=== PATIENT | male | born 1965 | race Caucasian/White ===

== ENCOUNTER 2016-11-29 07:48 | Emergency (ER) | payer BC ==
[~2016-11-29] VITALS: Ht 177.8 cm; Wt 115.3 kg
[~2016-11-29 07:48] MED LIST: IBUP-103 PO; METO50TA7 PO
[2016-11-29 07:49] VITALS: TEMP 36.6; Ht 177.8 cm; Wt 115.3 kg
[2016-11-29] MEDS ORDERED: KETOROLAC TROMETHAMINE 60 MG/2 ML VIAL IM STA (08:19)
[2016-11-29 08:41] VITALS: BP 122/65; PULSE 68; O2SAT 98
--- NOTE | 2016-11-29 12:18 | EMERGENCY ROOM VISIT NOTE ---
History First contact with patient: 08:02 Chief Complaint: NECK PAIN Stated Complaint: NECK SPASMS History of Present Illness The patient is a 51 year old male who presents to the Emergency Room with complaints of neck stiffness and "a crick in my neck". The patient reports that he developed tightness in his neck last evening around 11 PM. He admits to playing golf yesterday, but denies any known injury to the neck. The patient reports that the pain progressively worsened overnight, worsened with any movement. The patient reports that he does frequently get neck tightness. The patient is predominantly a side sleeper. He does not feel that his pillow is good for side sleeping. The patient denies any pain extending into the upper back, shoulder or chest. He denies any shortness of breath or pain with deep breathing. The patient reports that he also has a prior history of lower back problems, and did take some Flexeril that he had at home. He does report moderate relief with the Flexeril, but still rates his discomfort a 5 out of 10. He denies any paresthesias or numbness of the upper extremities. Review of Systems 10 system review was performed and was negative except for pertinent positives and negatives as indicated in history of present illness Past Medical/Surgical History Medical Problems: (1) Obesity, unspecified (2) Obstructive Sleep Apnea (Adult) (Pediatric) (3) Obstructive Sleep Apnea (Adult) (Pediatric) (4) Parox Ventric Tachycard Surgical Problems: (1) History of inguinal hernia repair, bilateral (2) Presence Of Automatic (Implantable) Cardiac Defibrillator Family History FH: heart disease FH: melanoma Social History Smoking Status: Never Smoker Alcohol Use: occasionally Marital Status: Housing Status: lives with family Occupation Status: employed Current/Historical Medications Scheduled Metoprolol Succ (Toprol Xl) (Toprol-Xl), 50 MG PO QAM Scheduled PRN Ibuprofen Tab (Advil), 200 MG PO DIRECTED PRN for Pain Physical Exam Vital Signs Date Time Temp Pulse Resp B/P (MAP) Pulse Ox O2 Delivery O2 Flow Rate FiO2 11/29/16 08:41 68 16 122/65 98 11/29/16 07:49 36.6 73 16 127/83 95 Room Air Pain Rating (0-10): 6.0 Physical Exam CONSTITUTIONAL: Healthy and well nourished. Alert and oriented X 3 with positive affect. Patient appears in mild discomfort. HEENT: Normocephalic, atraumatic. Pupils equal, round and reactive. NECK: The patient minimizes movement of the neck. He has mild rigidity of the right cervical paraspinous and lateral musculature.. RESPIRATORY: Clear to auscultation bilaterally with no wheezing, crackles, rhonchi or stridor. CARDIOVASCULAR: Regular rate and rhythm with no murmurs, rubs or gallops. MUSCULOSKELETAL: Examination shows no significant tenderness to palpation of the right trapezius muscle or shoulder region. INTEGUMENTARY: No rash or other significant dermatologic conditions noted. NEUROLOGIC: No focal neurologic deficits noted. Deltoid sensation is intact. Medical Decision & Procedures Medications Administered Medications (Trade) Dose Ordered Sig/Bharat Route Start Time Stop Time Status Last Admin Dose Admin Ketorolac Tromethamine (Toradol Inj) 60 mg NOW STAT IM 11/29/16 08:19 11/29/16 08:20 DC 11/29/16 08:37 60 MG ED Course Patient history and physical exam were performed. Nurse's notes were reviewed. Vital signs were reviewed and were normal. History and clinical exam are consistent with cervical muscle spasm. The patient was dispensed a soft cervical collar, and encouraged to apply heat to the neck. The patient reports that he is allowed to take NSAIDs. He was encouraged to alternate ibuprofen and Tylenol for baseline pain relief. He was also instructed to continue with his Flexeril at home as needed for additional relief. He was encouraged to follow-up with his PCP as needed if his spasm persists. The patient was happy with plan of care, voiced understanding of all discharge instructions, and rated his discomfort a 4 out of 10 at the time of discharge. Medical Decision Medication Reconcilliation Current Medication List: was personally reviewed by mo Blood Pressure Screening Patient's blood pressure: Normal blood pressure Impression Primary Impression: Spasm of cervical paraspinous muscle Departure Information Dispostion Home / Self-Care Forms HOME CARE DOCUMENTATION FORM, IMPORTANT VISIT INFORMATION Patient Instructions My [facility], ED Spasm Neck No Injury Additional Instructions Intermittently apply heat to neck. Wear soft collar as needed for additional relief. Ibuprofen 800 mg and/or Tylenol 1000 mg every 8 hours. You may also alternate these medications for more effective pain relief: Ibuprofen --4 HRS--> Tylenol --4 HRS--> ibuprofen --4 HRS--> Tylenol .... Continue with Flexeril every 8 hours to minimize muscle irritability. Follow-up with your family doctor if symptoms are not improving within the next 2-3 days.
== END 2016-11-29 08:42 | disposition home or self-care (01) ==
LOC: C.EDB 07:49 → C.EDA 08:42
DX: M62.838 Other muscle spasm (principal); M54.2 Cervicalgia; G47.33 Obstructive sleep apnea (adult) (pediatric); E66.9 Obesity, unspecified; I47.2 Ventricular tachycardia; Z82.49 Family history of ischemic heart disease and other diseases of the circulatory system; Z80.9 Family history of malignant neoplasm, unspecified; Z79.899 Other long term (current) drug therapy

== ENCOUNTER 2022-04-22 15:52 | Inpatient (IN) ==
[2022-04-22] MEDS ORDERED: ADENOSINE IV SOLN 3 MG/ML 2 ML VIAL IV ONE (16:08)
--- NOTE | 2022-04-22 16:11 | Emergency Department Note ---
Impression & Plan SVT (supraventricular tachycardia), HOCM (hypertrophic obstructive cardiomyopathy) ED Provider Note NAME: HAYLIE ORELLANA AGE: 56 SEX: M : 1965 ARRIVES VIA: Walk-In INFORMANT: Patient ED PROVIDER(S): Rojelio Zhu DO CHIEF COMPLAINT: chest pain, shortness of breath and arm pain HPI: Patient is a 56-year-old male with past medical history of hypertrophic cardiomyopathy who presents the ER for chest pain associated with left arm pain and shortness of breath and feeling his heart race. He does have a history of SVT. He denies any belly pain, nausea, vomiting, or diarrhea. No dysuria, urgency, or frequency. No other exacerbating or remitting factors. Pain is in the middle of his chest and feels like a tightness. This does feel slightly similar to his previous bouts of SVT. He denies any history of A. fib, flutter, V. tach or V. fib. PAST MEDICAL HISTORY:See Below PAST SURGICAL HISTORY:See Below FAMILY HISTORY:See Below SOCIAL HISTORY:See Below HOME MEDICATIONS:See Below ALLERGIES:See Below VITALS:See Below PHYSICAL EXAMINATION: GENERAL: Sitting up in bed, alert, mild distress EYE EXAM: normal conjunctiva. PERRL and EOM's grossly intact. OROPHARYNX: no exudate, no erythema, lips, buccal mucosa, and tongue normal and mucous membranes are moist NECK: supple, no nuchal rigidity, no adenopathy, non-tender LUNGS: Clear to auscultation. Normal chest wall mechanics HEART: Tachycardic, S1 normal and S2 normal ABDOMEN: abdomen soft, non-tender, normo-active bowel sounds, no masses, no rebound or guarding. UPPER EXTREMITIES: upper extremities are grossly normal. LOWER EXTREMITIES: No pitting edema. NEURO EXAM: Normal sensorium, cranial nerves II-XII grossly intact, normal speech, no gross weakness of arms, no gross weakness of legs. MEDICAL DECISION MAKING: Patient is a 56-year-old male who presents the ER for chest pain shortness of breath and arm pain. Upon arrival he is found to be in SVT. IV was established blood was obtained. Labs show no significant leukocytosis or anemia. BMP along LFTs bilirubin was unremarkable. Lipase is normal. Troponin was elevated. TSH of 4.8. COVID influenza and RSV were negative. Troponin was only mildly elevated. Discussed with [facility] cardiology Dr. Gerard. He recommended admission and additional oral dose metoprolol. Patient was given aspirin updated at bedside discussed with the hospitalist for further evaluation and work-up. We were unable to interrogate his defibrillator as our interrogation device was not working. I did discuss with the charge nurse and multiple other people in regards to getting this fixed but was unsuccessful. Triage Nursing notes reviewed. Limited review of prior medical records performed Vital Signs: reviewed and remarkable for no significant abnormalities Differential diagnosis: Cardiac ischemia, aortic dissection, pulmonary embolism, pneumothorax, pneumonia, pericarditis, myocarditis, esophageal rupture, GERD, cholecystitis, pancreatitis, musculoskeletal, as well as other pathologies. ER treatment provided: See below Diagnostics interpreted by me include EKG and cardiac monitoring as listed below: -Cardiac Monitoring: An order was placed for continuous cardiac monitoring. The monitor shows a rate of 170 with SVT rhythm. -ECG: Supraventricular tachycardia rate of [address] depressions in the inferior and lateral leads QTC 521 EKG #2 Sinus rhythm rate of 92 Normal axis No PVCs QTC 472 -Laboratory studies:Interpreted by me as stated above in MDM and shown below. Imaging studies: Xrays: As interpreted by me: Portable AP upright 1 view of the chest shows no focal infiltrate CTs show: none Consultation(s): Discussed with Dr. Gerard recommended admission and further work-up and additional dose of metoprolol Procedures:none Critical Care: None Past Med/Surg History Medical History Depression HOCM (hypertrophic obstructive cardiomyopathy) NSVT (nonsustained ventricular tachycardia) Obstructive sleep apnea (adult) (pediatric) SHEREEN (obstructive sleep apnea) Presence of automatic (implantable) cardiac defibrillator SVT (supraventricular tachycardia) Surgical History History of hernia surgery S/P colonoscopy S/P ICD (internal cardiac defibrillator) procedure Status post third molar tooth extraction 1996 Family History Other Hypertrophic cardiomyopathy Social History Smoking Status: Never smoker Hx Alcohol Use: Yes Alcohol type: beer Alcohol type Comment: every other day Hx Substance Use: No Preferred Language: Bengali Feels Safe at Home: Yes Allergies Allergies Allergy/AdvReac Type Severity Reaction Status Date / Time erythromycin base Allergy Mild HIVES Unverified 05/08/18 10:19 Penicillins Allergy Mild HIVES Unverified 05/08/18 10:19 Home Meds Home Medications Medication Instructions Recorded Confirmed glucosamine sulfate 500 mg tablet 500 mg PO QAM 05/08/18 04/22/22 (Glucosamine) metoprolol succinate 25 mg 25 mg PO BID 05/08/18 04/22/22 tablet,extended release 24 hr ascorbic acid (vitamin C) 1,000 mg 1,000 cap PO DAILY 04/22/22 04/22/22 capsule,extended release sertraline 100 mg tablet 100 mg PO DAILY 04/22/22 04/22/22 Results & Data (ED) Vital Signs Vital Signs - 24 hr 04/22/22 15:53 04/22/22 16:03 04/22/22 16:03 Temperature 36.6 C Temperature Source Temporal Artery Scan Pulse Rate 173 H 169 H Pulse Rate from SpO2 Sensor 170 H Respiratory Rate 24 28 H Respiratory Effort / Characteristics Non-Labored Spontaneous Blood Pressure 110/75 120/89 Blood Pressure Mean 86 99 Blood Pressure Position Sitting Pulse Oximetry 95 97 Oxygen Delivery Method Room Air Sepsis Recent Fever Within 48 Hours No Sepsis New/Unexplained Change in Mental Status N/A Sepsis Action Taken by Nursing No Action Required 04/22/22 16:10 04/22/22 16:20 04/22/22 16:30 Temperature Temperature Source Pulse Rate 104 H 93 H Pulse Rate from SpO2 Sensor 104 H 93 H Respiratory Rate 15 12 Respiratory Effort / Characteristics Blood Pressure 113/75 Blood Pressure Mean 87 Blood Pressure Position Pulse Oximetry 95 93 Oxygen Delivery Method Sepsis Recent Fever Within 48 Hours Sepsis New/Unexplained Change in Mental Status Sepsis Action Taken by Nursing 04/22/22 16:30 04/22/22 16:40 04/22/22 16:50 Temperature Temperature Source Pulse Rate 99 H 98 H 99 H Pulse Rate from SpO2 Sensor 98 H 97 H 99 H Respiratory Rate 7 L 20 20 Respiratory Effort / Characteristics Blood Pressure Blood Pressure Mean Blood Pressure Position Pulse Oximetry 90 94 93 Oxygen Delivery Method Sepsis Recent Fever Within 48 Hours Sepsis New/Unexplained Change in Mental Status Sepsis Action Taken by Nursing 04/22/22 17:00 04/22/22 17:00 04/22/22 17:10 Temperature Temperature Source Pulse Rate 98 H 98 H Pulse Rate from SpO2 Sensor 98 H 98 H Respiratory Rate 16 11 L Respiratory Effort / Characteristics Blood Pressure 106/70 Blood Pressure Mean 82 Blood Pressure Position Pulse Oximetry 92 96 Oxygen Delivery Method Sepsis Recent Fever Within 48 Hours Sepsis New/Unexplained Change in Mental Status Sepsis Action Taken by Nursing 04/22/22 17:20 04/22/22 17:30 04/22/22 17:31 Temperature Temperature Source Pulse Rate 98 H 100 H 94 H Pulse Rate from SpO2 Sensor 98 H 100 H 96 H Respiratory Rate 17 24 19 Respiratory Effort / Characteristics Blood Pressure Blood Pressure Mean Blood Pressure Position Pulse Oximetry 93 91 93 Oxygen Delivery Method Sepsis Recent Fever Within 48 Hours Sepsis New/Unexplained Change in Mental Status Sepsis Action Taken by Nursing 04/22/22 17:31 04/22/22 17:40 04/22/22 17:50 Temperature Temperature Source Pulse Rate 89 90 Pulse Rate from SpO2 Sensor 89 90 Respiratory Rate 9 L 14 Respiratory Effort / Characteristics Blood Pressure 100/86 Blood Pressure Mean 90 Blood Pressure Position Pulse Oximetry 95 92 Oxygen Delivery Method Sepsis Recent Fever Within 48 Hours Sepsis New/Unexplained Change in Mental Status Sepsis Action Taken by Nursing 04/22/22 18:00 04/22/22 18:00 04/22/22 18:10 Temperature Temperature Source Pulse Rate 83 80 Pulse Rate from SpO2 Sensor 84 80 Respiratory Rate 12 12 Respiratory Effort / Characteristics Blood Pressure 106/72 Blood Pressure Mean 83 Blood Pressure Position Pulse Oximetry 92 91 Oxygen Delivery Method Sepsis Recent Fever Within 48 Hours Sepsis New/Unexplained Change in Mental Status Sepsis Action Taken by Nursing 04/22/22 18:20 04/22/22 18:22 04/22/22 18:22 Temperature Temperature Source Pulse Rate 79 83 Pulse Rate from SpO2 Sensor 80 82 Respiratory Rate 16 12 Respiratory Effort / Characteristics Blood Pressure 110/81 Blood Pressure Mean 90 Blood Pressure Position Pulse Oximetry 95 94 Oxygen Delivery Method Sepsis Recent Fever Within 48 Hours Sepsis New/Unexplained Change in Mental Status Sepsis Action Taken by Nursing Laboratory Data 04/22/22 16:04 04/22/22 16:04 Lab Results 04/22/22 04/22/22 04/22/22 Range/Units 16:04 16:04 17:22 WBC 7.92 (4.8-10.8) K/ul RBC 5.40 (4.70-6.10) M/uL Hgb 16.7 (14.0-18.0) g/dl Hct 45.9 (42.0-52.0) % MCV 85.0 (80.0-100.0) fL MCH 30.9 (25.0-34.0) pg MCHC 36.4 H (32.0-36.0) g/dL RDW Std Deviation 38.4 (36.4-46.3) fL RDW Coeff of Georgette 12.6 (11.5-14.5) % Plt Count 204 (130-400) K/uL MPV 10.2 (9.4-12.4) fL Immature Gran % (Auto) 0.4 % Neut % (Auto) 59.8 % Lymph % (Auto) 26.3 % [place] % (Auto) 9.2 % Eos % (Auto) 3.5 % Baso % (Auto) 0.8 % Neut # (Auto) 4.74 (1.40-6.50) K/uL Lymph # (Auto) 2.08 (1.2-3.4) K/uL [place] # (Auto) 0.73 H (0.11-0.59) K/uL Eos # (Auto) 0.28 (0-0.50) K/uL Baso # (Auto) 0.06 (0-0.2) K/uL Immature Gran # (Auto) 0.03 (0.01-0.20) K/uL Sodium 139 (136-145) mmol/L Potassium 3.7 (3.5-5.1) mmol/L Chloride 106 (98-107) mmol/L Carbon Dioxide 26 (21-32) mmol/L Anion Gap 7 (3-11) BUN 21 (6-23) mg/dl Creatinine 1.15 (0.6-1.4) mg/dl Est Cr Clr Drug Dosing Not Reportable Est GFR ( Amer) 82.0 ml/min Est GFR (Non-Af Amer) 70.7 ml/min BUN/Creatinine Ratio 18.3 (10-20) Glucose 116 H (70-99(Fasting)) mg/dl Calcium 10.1 (8.5-10.1) mg/dl Total Bilirubin 0.7 (0.2-1.0) mg/dl AST 24 (13-39) U/L ALT 19 (7-52) U/L Alkaline Phosphatase 91 (34-104) U/L Troponin I High Sens 25.8 H (0-20) pg/ml Total Protein 7.6 (6.0-8.3) gm/dl Albumin 4.7 (3.4-5.0) gm/dl Globulin 2.9 (2.5-4.0) gm/dl Albumin/Globulin Ratio 1.6 (0.9-2) Lipase 20 (11-82) U/L SARS-CoV-2 (PCR) (Negative) Influenza Type A (PCR) (Neg) Influenza Type B (PCR) (Neg) RSV (RT-PCR) (Neg) SARS-CoV-2, RNA, NAAT NEGATIVE (NEGATIVE) 04/22/22 Range/Units 18:41 WBC (4.8-10.8) K/ul RBC (4.70-6.10) M/uL Hgb (14.0-18.0) g/dl Hct (42.0-52.0) % MCV (80.0-100.0) fL MCH (25.0-34.0) pg MCHC (32.0-36.0) g/dL RDW Std Deviation (36.4-46.3) fL RDW Coeff of Georgette (11.5-14.5) % Plt Count (130-400) K/uL MPV (9.4-12.4) fL Immature Gran % (Auto) % Neut % (Auto) % Lymph % (Auto) % [place] % (Auto) % Eos % (Auto) % Baso % (Auto) % Neut # (Auto) (1.40-6.50) K/uL Lymph # (Auto) (1.2-3.4) K/uL [place] # (Auto) (0.11-0.59) K/uL Eos # (Auto) (0-0.50) K/uL Baso # (Auto) (0-0.2) K/uL Immature Gran # (Auto) (0.01-0.20) K/uL Sodium (136-145) mmol/L Potassium (3.5-5.1) mmol/L Chloride (98-107) mmol/L Carbon Dioxide (21-32) mmol/L Anion Gap (3-11) BUN (6-23) mg/dl Creatinine (0.6-1.4) mg/dl Est Cr Clr Drug Dosing Est GFR ( Amer) ml/min Est GFR (Non-Af Amer) ml/min BUN/Creatinine Ratio (10-20) Glucose (70-99(Fasting)) mg/dl Calcium (8.5-10.1) mg/dl Total Bilirubin (0.2-1.0) mg/dl AST (13-39) U/L ALT (7-52) U/L Alkaline Phosphatase (34-104) U/L Troponin I High Sens (0-20) pg/ml Total Protein (6.0-8.3) gm/dl Albumin (3.4-5.0) gm/dl Globulin (2.5-4.0) gm/dl Albumin/Globulin Ratio (0.9-2) Lipase (11-82) U/L SARS-CoV-2 (PCR) NEGATIVE (Negative) Influenza Type A (PCR) Negative (Neg) Influenza Type B (PCR) Negative (Neg) RSV (RT-PCR) Negative (Neg) SARS-CoV-2, RNA, NAAT (NEGATIVE) Administered Medications Discontinued Medications Adenosine (Adenosine Iv Soln 3 Mg/Ml 2 Ml Vial) Confirm Administered Dose 6 mg IV [email or web address] ONE Stop: 04/22/22 16:09 Last Admin: 04/22/22 19:09 Dose: Not Given Documented By: [id number] Metoprolol Tartrate (Metoprolol Tartrate 50 Mg Tab) 25 mg PO NOW STA Stop: 04/22/22 18:06 Last Admin: 04/22/22 18:24 Dose: 25 mg Documented By: AM Imaging Data Radiologist's Impression: Chest X-Ray 04/22/22 15:59 SINGLE VIEW CHEST CLINICAL HISTORY: Atypical chest pain FINDINGS: An AP, portable, upright chest radiograph is compared to chest x-ray and chest CT dated 10/18/2021. A single lead cardiac AICD is located in the left upper abdomen. The heart is enlarged. The pulmonary vasculature is noncongested. Chronic interstitial thickening is similar to previous. Dependent opacities likely represent atelectasis. No large pleural effusion or pneumothorax is seen. The skeletal structures appear osteopenic. The bony thorax is grossly intact. IMPRESSION: 1. Cardiomegaly and the ICD without radiographic evidence of congestive failure. 2. Dependent opacities likely represent atelectasis. Clinical correlation will be required. ACT 112: Negative or not required by law. Electronically signed by: Saeid Be M.D. 04/22/2022 4:30 PM Discharge Plan Visit Data Chief Complaint: Cardiac Assessment Stated Complaint: CHEST PAIN, SHORTNESS OF BREATH, PAIN LEFT ARM ED Provider: Rojelio Zhu Discharge Problem: SVT (supraventricular tachycardia), HOCM (hypertrophic obstructive cardiomyopathy) Patient Disposition: Admitted As Inpatient Discharge Instructions Interventions: ED Discharge Assessment Last Done: 04/22/22 21:42
[2022-04-22 16:15] LABS: Basophils # (auto) 0.06 K/uL (0-0.2); Basophils % (auto) 0.8 %; Eosinophils # (auto) 0.28 K/uL (0-0.50); Eosinophils % (auto) 3.5 %; Hematocrit (blood only) 45.9 % (42.0-52.0); Hemoglobin 16.7 g/dl (14.0-18.0); Immature Granulocytes # (auto) 0.03 K/uL (0.01-0.20); Immature Granulocytes % (auto) 0.4 %; Lymphocytes # (auto) 2.08 K/uL (1.2-3.4); Lymphocytes % (auto) 26.3 %; Mean Corpuscular Hemoglobin 30.9 pg (25.0-34.0); Mean Corpuscular Hgb Conc 36.4 g/dL (32.0-36.0); Mean Platelet Volume 10.2 fL (9.4-12.4); Monocytes # (auto) 0.73 K/uL (0.11-0.59); Monocytes % (auto) 9.2 %; Neutrophils # (auto) 4.74 K/uL (1.40-6.50); Neutrophils % (auto) 59.8 %; Platelet Count 204 K/uL (130-400); RDW Coefficient of Variation 12.6 % (11.5-14.5); RDW Standard Deviation 38.4 fL (36.4-46.3); White Blood Count 7.92 K/ul (4.8-10.8)
--- NOTE | 2022-04-22 16:31 | XRay Report ---
SINGLE VIEW CHEST CLINICAL HISTORY: Atypical chest pain FINDINGS: An AP, portable, upright chest radiograph is compared to chest x-ray and chest CT dated 10/18. A single lead cardiac AICD is located in the left upper abdomen. The heart is enlarged. The pu lmonary vasculature is noncongested. Chronic interstitial thickening is similar to previous. Dependen t opacities likely represent atelectasis. No large pleural effusion or pneumothorax is seen. The skel etal structures appear osteopenic. The bony thorax is grossly intact. IMPRESSION: 1. Cardiomegaly and the ICD without radiographic evidence of congestive failure. 2. Dependent opacities likely represent atelectasis. Clinical correlation will be required. ACT 112: Negative or not required by law. Electronically signed by: Saeid Be M.D. 04/22/2022 4:30 PM
[2022-04-22 16:46] LABS: Alanine Aminotransferase 19 U/L (7-52); Albumin Globulin Ratio 1.6 (0.9-2); Albumin Level 4.7 gm/dl (3.4-5.0); Alkaline Phosphatase 91 U/L (34-104); Anion Gap 7 (3-11); Aspartate Aminotransferase 24 U/L (13-39); BUN Creatinine Ratio 18.3 (10-20); Bilirubin,Total 0.7 mg/dl (0.2-1.0); Blood Urea Nitrogen 21 mg/dl (6-23); Calcium 10.1 mg/dl (8.5-10.1); Carbon Dioxide 26 mmol/L (21-32); Chloride 106 mmol/L (98-107); Est GFR (Non-African American) 70.7 ml/min; Globulin 2.9 gm/dl (2.5-4.0); Glucose 116 mg/dl (70-99(Fasting)); Lipase 20 U/L (11-82); Potassium 3.7 mmol/L (3.5-5.1); Sodium 139 mmol/L (136-145); Total Protein 7.6 gm/dl (6.0-8.3)
[2022-04-22 16:53] LABS: Troponin I High Sensitivity 25.8 pg/ml (0-20)
[2022-04-22] MEDS ORDERED: METOPROLOL TARTRATE 50 MG TAB PO STA (18:05)
--- NOTE | 2022-04-22 18:47 | History & Physical Report ---
Date of Service April 22, 2022 Assessment & Plan (1) SVT (supraventricular tachycardia): Plan: HOCM patient with ICD in place has a h/o SVT, last in Oct 2021. No ICD firing, but symptoms brought him to the ER. This was likely related to 1 bottle of wine he drank last night and missed doses of metoprolol yesterday. Denies caffeine use. Reports 1 beer every other day on average and no other street drug use. He reports using some common herbal supplements such as tumeric, glucosamine, and vitamin C. No other stimulant use is apparent. TSH in the fall was normal, will recheck now. Will check Mag and repeat troponin, which is likely elevated from rapid heart rate. EKG is nonischemic. Cardiology consulted to assess in am. Pacemaker interrogation was ordered. (2) HOCM (hypertrophic obstructive cardiomyopathy): Plan: known structural heart disease s/p ICD (3) SHEREEN (obstructive sleep apnea): Plan: compliant with CPAP qHS which was ordered. (4) Depression: Plan: chronic, stable. Continues on sertraline daily. (5) Presence of automatic (implantable) cardiac defibrillator: Plan: Interrogation was ordered. (6) Morbid obesity: Plan: Lifestyle changes recommended to decrease percent body fat and improve lean muscle mass. DVT proph-Lovenox Full Code Dispo- PCU for close monitoring overnight. Then home in am pending cardiology clearance/recommendations. [facility] History of Present Illness Chief Complaint: tachycardia Primary Care Provider: NO PCP 56 yo man with a history of hypertrophic obstructive cardiomyopathy, supraventricular tachycardia and nonsustained ventricular tachycardia status post ICD in the setting of obstructive sleep apnea and morbid obesity presents for left arm pain and palpitations. He reports watching television with his [id number] after yazidi today and started feeling poorly. He specifically felt his heart racing, left arm pain and shortness of breath. He tried to bear down but without success. He took an aspirin and came to the ER. He spontaneously converted to sinus rhythm and was given 25 metoprolol p.o. When he converted to sinus rhythm his arm pain and symptoms resolved. Over the past few days he has been feeling well he reports no caffeine intake. He did drink almost a bottle of wine last night which is unusual for him. He also missed both his morning and evening dose of metoprolol yesterday. He did take his metoprolol dose this morning. He denies any fevers chills, urinary symptoms, GI symptoms or other issues today. He is currently in sinus rhythm an d reporting no symptoms and feeling well. He is asking to eat food. Allergies Allergy/AdvReac Type Severity Reaction Status Date / Time erythromycin base Allergy Mild HIVES Unverified 05/08/18 10:19 Penicillins Allergy Mild HIVES Unverified 05/08/18 10:19 Home Medications Medication Instructions Recorded Confirmed Type glucosamine sulfate 500 mg tablet 500 mg PO QAM 05/08/18 04/22/22 History (Glucosamine) metoprolol succinate 25 mg 25 mg PO BID 05/08/18 04/22/22 History tablet,extended release 24 hr ascorbic acid (vitamin C) 1,000 mg 1,000 cap PO DAILY 04/22/22 04/22/22 History capsule,extended release sertraline 100 mg tablet 100 mg PO DAILY 04/22/22 04/22/22 History Past Med/Surg History Medical History Depression HOCM (hypertrophic obstructive cardiomyopathy) NSVT (nonsustained ventricular tachycardia) Obstructive sleep apnea (adult) (pediatric) SHEREEN (obstructive sleep apnea) Presence of automatic (implantable) cardiac defibrillator SVT (supraventricular tachycardia) Surgical History History of hernia surgery S/P colonoscopy S/P ICD (internal cardiac defibrillator) procedure Status post third molar tooth extraction 1996 Family History Other Hypertrophic cardiomyopathy Social History Smoking Status: Never smoker Hx Alcohol Use: Yes Alcohol type: beer Alcohol type Comment: every other day Hx Substance Use: No Preferred Language: Persian Feels Safe at Home: Yes Review of Systems Review of Systems: All systems reviewed and negative except as indicated above in HPI. Physical Exam Physical Exam: CONSTITUTIONAL: obese, vitals as above, generally well- appearing, NAD EYES: pupils are round and equal bilaterally, normal conjunctivae, no scleral icterus ENT: external ear and nose normal, oropharynx clear, oral mucosa moist NECK: trachea midline, no lymphadenopathy RESPIRATORY: clear to auscultation bilaterally, no crackles, rales or wheezes, normal respiratory effort CARDIOVASCULAR: regular rate and rhythm, 3/6 JB across precordium, no gallops or rubs, no JVD, no peripheral edema CHEST: +ICD GASTROINTESTINAL: soft, protuberant, nontender, ND, no guarding MUSCULOSKELETAL: strength 5/5 throughout, head is normocephalic and atraumatic, no gross focal deficits. SKIN: warm and dry NEUROLOGIC: CN 2-12 grossly intact, no sensory deficit, normal cognition, normal speech, no tremor. No gross focal deficits. PSYCHIATRIC: alert cooperative and oriented to person, place and time. Euthymic mood, makes good eye contact, language grossly intact, recent and remote memory grossly intact. Results & Data Results & Data ([facility]) Vital Signs (Past 12 Hours) Vital Signs Temp Pulse Resp BP Pulse Ox O2 Del Method 04/22/22 18:22 83 12 94 04/22/22 18:22 110/81 04/22/22 18:20 79 16 95 04/22/22 18:10 80 12 91 04/22/22 18:00 83 12 92 04/22/22 18:00 106/72 04/22/22 17:50 90 14 92 04/22/22 17:40 89 9 L 95 04/22/22 17:31 100/86 04/22/22 17:31 94 H 19 93 04/22/22 17:30 100 H 24 91 04/22/22 17:20 98 H 17 93 04/22/22 17:10 98 H 11 L 96 04/22/22 17:00 98 H 16 92 04/22/22 17:00 106/70 04/22/22 16:50 99 H 20 93 04/22/22 16:40 98 H 20 94 04/22/22 16:30 99 H 7 L 90 04/22/22 16:30 113/75 04/22/22 16:20 93 H 12 93 04/22/22 16:10 104 H 15 95 04/22/22 16:03 169 H 28 H 97 04/22/22 16:03 120/89 04/22/22 15:53 36.6 C 173 H 24 110/75 95 Room Air Laboratory Results Short CBC 04/22/22 Range/Units 16:04 WBC 7.92 (4.8-10.8) K/ul Hgb 16.7 (14.0-18.0) g/dl Hct 45.9 (42.0-52.0) % Plt Count 204 (130-400) K/uL BMP 04/22/22 16:04 Sodium 139 Potassium 3.7 Chloride 106 Carbon Dioxide 26 BUN 21 Creatinine 1.15 Glucose 116 H Calcium 10.1 Liver Function 04/22/22 Range/Units 16:04 Total Bilirubin 0.7 (0.2-1.0) mg/dl AST 24 (13-39) U/L ALT 19 (7-52) U/L Alkaline Phosphatase 91 (34-104) U/L Albumin 4.7 (3.4-5.0) gm/dl Diagnostic Findings Chest X-Ray 04/22/22 15:59 SINGLE VIEW CHEST CLINICAL HISTORY: Atypical chest pain FINDINGS: An AP, portable, upright chest radiograph is compared to chest x-ray and chest CT dated 10/18/2021. A single lead cardiac AICD is located in the left upper abdomen. The heart is enlarged. The pulmonary vasculature is noncongested. Chronic interstitial thickening is similar to previous. Dependent opacities likely represent atelectasis. No large pleural effusion or pneumothorax is seen. The skeletal structures appear osteopenic. The bony thorax is grossly intact. IMPRESSION: 1. Cardiomegaly and the ICD without radiographic evidence of congestive failure. 2. Dependent opacities likely represent atelectasis. Clinical correlation will be required. ACT 112: Negative or not required by law. Electronically signed by: Saeid Be M.D. 04/22/2022 4:30 PM Code Status & VTE Plan VTE Prophylaxis Plan VTE Prophylaxis will be ordered: Yes
[2022-04-22 19:38] LABS: Influenza A virus by PCR Negative (Neg); Influenza B virus by PCR Negative (Neg); RSV by PCR Negative (Neg); SARS CoV2 RNA(COVID-19) Ceph NEGATIVE (Negative)
[2022-04-22] MEDS ORDERED: METOPROLOL SUCC 25MG EXT REL TAB PO SCH (21:00)
[2022-04-22 21:15] LABS: Magnesium 2.2 mg/dl (1.7-2.4)
[2022-04-22 21:30] LABS: Troponin I High Sensitivity 2329.5 pg/ml (0-20)
[2022-04-22] MEDS ORDERED: POLYETHYLENE (MIRALAX) 17 GM PACK PO PRN (21:41)
[2022-04-22] MEDS ORDERED: ACETAMINOPHEN 325 MG TAB PO PRN (21:41)
[2022-04-22 22:41] LABS: Thyroid Stimulating Hormone 4.893 uIu/ml (0.300-4.500)
[2022-04-22 23:20] LABS: T4 Free Thyroxine 0.83 ng/dl (0.61-1.60)
[2022-04-23] MEDS ORDERED: Heparin IV Adult Wt-Based Standard WITH Bolus Protocol IV SCH (00:04)
[2022-04-23] MEDS ORDERED: HEPARIN SODIUM/DEXTROSE 25,000 UNITS/500 ML BAG IV SCH (00:15)
[2022-04-23] MEDS ORDERED: HEPARIN SOD (PORCINE) 1000 UNIT/ML IV ONE (01:00)
[2022-04-23 01:09] LABS: Partial Thromboplastin Time 28.4 Seconds (21.0-31.0); Prothrombin Time 10.9 Seconds (9.0-12.0)
[2022-04-23 04:57] LABS: Hematocrit (blood only) 42.1 % (42.0-52.0); Hemoglobin 15.1 g/dl (14.0-18.0); Mean Corpuscular Hgb Conc 35.9 g/dL (32.0-36.0); Mean Corpuscular Volume 86.4 fL (80.0-100.0); Mean Platelet Volume 10.8 fL (9.4-12.4); Platelet Count 154 K/uL (130-400); RDW Standard Deviation 40.3 fL (36.4-46.3); Red Blood Count 4.87 M/uL (4.70-6.10); White Blood Count 8.03 K/ul (4.8-10.8)
[2022-04-23 05:26] LABS: BUN Creatinine Ratio 19.4 (10-20); Calcium 9.1 mg/dl (8.5-10.1); Creatinine Clr Calc Pharmacy 118.3 ml/min; Est GFR (Non-African American) 91.4 ml/min; Magnesium 2.2 mg/dl (1.7-2.4); Phosphorus 3.6 mg/dl (2.5-4.9)
[2022-04-23 05:52] LABS: Troponin I High Sensitivity 4243.2 pg/ml (0-20)
--- NOTE | 2022-04-23 07:22 | Communication Note ---
Date of Service: April 23, 2022 Patient second troponin tended up to 2000. asymptomatic. repeat ekg no acute findings. Started on iv heparin for nstemi, made npo. Troponin trended up to 5000 and am labs coming down to 4000's. Cardiology was already consulted. echo ordered.
[2022-04-23 08:56] LABS: Partial Thromboplastin Ratio 4.3
[2022-04-23 08:57] LABS: Partial Thromboplastin Time 118.2 Seconds (21.0-31.0)
[2022-04-23] MEDS ORDERED: SERTRALINE HCL 100 MG TABLET PO SCH (09:00)
[2022-04-23] MEDS ORDERED: METOPROLOL SUCC 25MG EXT REL TAB PO SCH (09:00)
--- NOTE | 2022-04-23 09:22 | Cardiology Consultation ---
Date of Consultation April 23, 2022 Assessment & Plan (1) HOCM (hypertrophic obstructive cardiomyopathy): (2) SVT (supraventricular tachycardia): (3) Presence of automatic (implantable) cardiac defibrillator: (4) Elevated troponin: Plan Patient is a 56-year-old male with known hypertrophic cardiomyopathy, obstructive, past atrial and ventricular arrhythmias who presented with narrow complex atrial tachycardia per report (no defibrillator activation) which spontaneously resolved in the ER. Episode may have been precipitated by a lapse in medications and alcohol use. Peak troponins however yoav substantially but without wall motion abnormality or EKG findings of acute injury Recommendations: Would proceed with coronary angiography to redefine coronary anatomy given significant rise in troponin. Echocardiogram does reflect severe hypertrophic cardiomyopathy Will interrogate pacer defibrillator to assure SVT versus atrial fibrillation which would change indications for long-term anticoagulation Heart rates better controlled and no arrhythmias on resuming usual dose of metoprolol succinate we will continue History of Present Illness Reason for Consultation: PSVT, elevated troponin Requesting Physician: Dr Simmons Attending Physician: Kam Simmons MD History of Present Illness Patient is a 56-year-old male with ongoing issues 1. Hypertrophic obstructive cardiomyopathy, gene positive familial 2. Paroxysmal supraventricular tachycardia 3. Paroxysmal ventricular tachycardia 4. Indwelling pacer defibrillator 5. Obstructive sleep apnea 6. Obesity Patient presents this admission noting day prior to admission having missed 2 doses of his medications, drank a full bottle of wine as an unusual occurrence. Patient was sitting quietly watching TV and suddenly developed sudden onset of tachycardia heart pounding with chest pain radiating to his left arm. Symptoms lasted 45 minutes to an hour before spontaneously resolving in the emergency room. Rhythm strips not available for review. No further discomfort since admission. No defibrillator activation. Device unable to be interrogated in the emergency room He does admit to occasional tachypalpitations but no sustained event since October 2021. Patient presented at that time and supraventricular tachycardia at 170 bpm per report resolved with adenosine Rare lightheadedness and 1 episode of exertional syncope No fevers chills or unexplained infections. No bleeding difficulties. Appetite and weight are stable. Allergies Allergy/AdvReac Type Severity Reaction Status Date / Time erythromycin base Allergy Mild HIVES Unverified 05/08/18 10:19 Penicillins Allergy Mild HIVES Unverified 05/08/18 10:19 Home Medications Medication Instructions Recorded Confirmed Type glucosamine sulfate 500 mg tablet 500 mg PO QAM 05/08/18 04/22/22 History (Glucosamine) metoprolol succinate 25 mg 25 mg PO BID 05/08/18 04/22/22 History tablet,extended release 24 hr ascorbic acid (vitamin C) 1,000 mg 1,000 cap PO DAILY 04/22/22 04/22/22 History capsule,extended release sertraline 100 mg tablet 100 mg PO DAILY 04/22/22 04/22/22 History Patient History Medical History Depression HOCM (hypertrophic obstructive cardiomyopathy) NSVT (nonsustained ventricular tachycardia) Obstructive sleep apnea (adult) (pediatric) SHEREEN (obstructive sleep apnea) Presence of automatic (implantable) cardiac defibrillator SVT (supraventricular tachycardia) Surgical History History of hernia surgery S/P colonoscopy S/P ICD (internal cardiac defibrillator) procedure Status post third molar tooth extraction 1996 Family History Other Hypertrophic cardiomyopathy Social History Smoking Status: Never smoker Second Hand Exposure: No; Do You Dip or Chew Tobacco: No; Tobacco Cessation Education Requested by Patient: No Hx Alcohol Use: Yes Alcohol type: wine Alcohol type Comment: every other day Hx Substance Use: No Preferred Language: Estonian Communication Ability: Effective [employer] Required: No Beliefs That Will Affect Care: None Current Living Situation: Spouse Other Information That Helps Us Care for You: No Feels Safe at Home: Yes Safety Concerns: Feels Safe At This Time Assistive Devices: None Review of Systems Review of Systems: All systems reviewed & are unremarkable except as noted in HPI & below Physical Exam Constitutional: WD/WN, vitals as above + obese; no acute distress Eyes: PERRL, conjunctivae normal, anicteric sclerae ENMT: external ear and nose normal, oropharynx normal Neck: trachea midline, no thyromegaly + thick neck Respiratory: normal respiratory effort, lungs clear to auscultation Cardiovascular: Rate/Rhythm: regular rate and regular rhythm Heart Sounds: normal S1, normal S2 and + murmur (Grade 2 or 6 systolic murmur heard best at the left upper sternal border. ); no gallop Palpation: normal PMI Vessels: normal carotid upstroke and radial pulses present; no JVD and no carotid bruit Extremities: no edema Gastrointestinal (Abdomen): normal bowel sounds, soft, nontender, no hepatosplenomegaly Musculoskeletal: no cyanosis or clubbing, extremities motor strength 5/5 Skin: no rashes, warm and dry Neurologic: PERRL, EOMI, accommodation nl, no face palsy, no dysarthria Psychiatric: A+Ox3, euthymic affect Results & Data ([facility]) Vital Signs (Past 12 Hours) Vital Signs Temp Pulse Resp BP Pulse Ox O2 Del Method 04/23/22 08:00 36.7 C 60 16 119/71 95 Room Air 04/23/22 04:00 36.7 C 56 L 18 119/60 94 Room Air, CPAP 04/23/22 02:50 36.9 C 60 18 135/70 95 Room Air 04/23/22 01:47 57 L 14 106/75 94 Room Air 04/23/22 01:02 69 14 106/75 96 Room Air 04/22/22 23:11 67 15 126/73 100 Room Air 04/22/22 22:16 61 14 111/81 96 Room Air 04/22/22 21:33 64 14 123/76 95 Room Air Laboratory Results Laboratory Results - last 24 hr 04/22/22 04/22/22 04/22/22 16:04 16:04 16:04 WBC 7.92 RBC 5.40 Hgb 16.7 Hct 45.9 MCV 85.0 MCH 30.9 MCHC 36.4 H RDW Std Deviation 38.4 RDW Coeff of Georgette 12.6 Plt Count 204 MPV 10.2 Immature Gran % (Auto) 0.4 Neut % (Auto) 59.8 Lymph % (Auto) 26.3 [place] % (Auto) 9.2 Eos % (Auto) 3.5 Baso % (Auto) 0.8 Neut # (Auto) 4.74 Lymph # (Auto) 2.08 [place] # (Auto) 0.73 H Eos # (Auto) 0.28 Baso # (Auto) 0.06 Immature Gran # (Auto) 0.03 PT 10.9 INR 1.0 APTT 28.4 PTT Ratio 1.0 Sodium 139 Potassium 3.7 Chloride 106 Carbon Dioxide 26 Anion Gap 7 BUN 21 Creatinine 1.15 Est Cr Clr Drug Dosing Not Reportable Est GFR ( Amer) 82.0 Est GFR (Non-Af Amer) 70.7 BUN/Creatinine Ratio 18.3 Glucose 116 H Calcium 10.1 Phosphorus Magnesium Total Bilirubin 0.7 AST 24 ALT 19 Alkaline Phosphatase 91 Troponin I High Sens 25.8 H Total Protein 7.6 Albumin 4.7 Globulin 2.9 Albumin/Globulin Ratio 1.6 Lipase 20 TSH Free T4 Nasal Screen MRSA (PCR) SARS-CoV-2 (PCR) Influenza Type A (PCR) Influenza Type B (PCR) RSV (RT-PCR) SARS-CoV-2, RNA, NAAT 04/22/22 04/22/22 04/22/22 17:22 18:41 19:26 WBC RBC Hgb Hct MCV MCH MCHC RDW Std Deviation RDW Coeff of Georgette Plt Count MPV Immature Gran % (Auto) Neut % (Auto) Lymph % (Auto) [place] % (Auto) Eos % (Auto) Baso % (Auto) Neut # (Auto) Lymph # (Auto) [place] # (Auto) Eos # (Auto) Baso # (Auto) Immature Gran # (Auto) PT INR APTT PTT Ratio Sodium Potassium Chloride Carbon Dioxide Anion Gap BUN Creatinine Est Cr Clr Drug Dosing Est GFR ( Amer) Est GFR (Non-Af Amer) BUN/Creatinine Ratio Glucose Calcium Phosphorus Magnesium Total Bilirubin AST ALT Alkaline Phosphatase Troponin I High Sens Total Protein Albumin Globulin Albumin/Globulin Ratio Lipase TSH 4.893 H Free T4 0.83 Nasal Screen MRSA (PCR) SARS-CoV-2 (PCR) NEGATIVE Influenza Type A (PCR) Negative Influenza Type B (PCR) Negative RSV (RT-PCR) Negative SARS-CoV-2, RNA, NAAT NEGATIVE 04/22/22 04/23/22 04/23/22 20:27 00:50 02:30 WBC RBC Hgb Hct MCV MCH MCHC RDW Std Deviation RDW Coeff of Georgette Plt Count MPV Immature Gran % (Auto) Neut % (Auto) Lymph % (Auto) [place] % (Auto) Eos % (Auto) Baso % (Auto) Neut # (Auto) Lymph # (Auto) [place] # (Auto) Eos # (Auto) Baso # (Auto) Immature Gran # (Auto) PT INR APTT PTT Ratio Sodium Potassium Chloride Carbon Dioxide Anion Gap BUN Creatinine Est Cr Clr Drug Dosing Est GFR ( Amer) Est GFR (Non-Af Amer) BUN/Creatinine Ratio Glucose Calcium Phosphorus Magnesium 2.2 Total Bilirubin AST ALT Alkaline Phosphatase Troponin I High Sens 2329.5 H* D 5120.5 H* D Total Protein Albumin Globulin Albumin/Globulin Ratio Lipase TSH Free T4 Nasal Screen MRSA (PCR) Negative SARS-CoV-2 (PCR) Influenza Type A (PCR) Influenza Type B (PCR) RSV (RT-PCR) SARS-CoV-2, RNA, NAAT 04/23/22 04/23/22 04/23/22 04:25 04:25 08:07 WBC 8.03 RBC 4.87 Hgb 15.1 Hct 42.1 MCV 86.4 MCH 31.0 MCHC 35.9 RDW Std Deviation 40.3 RDW Coeff of Georgette 13.0 Plt Count 154 MPV 10.8 Immature Gran % (Auto) Neut % (Auto) Lymph % (Auto) [place] % (Auto) Eos % (Auto) Baso % (Auto) Neut # (Auto) Lymph # (Auto) [place] # (Auto) Eos # (Auto) Baso # (Auto) Immature Gran # (Auto) PT INR APTT 118.2 H* PTT Ratio 4.3 Sodium 138 Potassium 4.0 Chloride 106 Carbon Dioxide 28 Anion Gap 4 BUN 18 Creatinine 0.93 Est Cr Clr Drug Dosing 118.3 Est GFR ( Amer) 106.0 Est GFR (Non-Af Amer) 91.4 BUN/Creatinine Ratio 19.4 Glucose 98 Calcium 9.1 Phosphorus 3.6 Magnesium 2.2 Total Bilirubin AST ALT Alkaline Phosphatase Troponin I High Sens 4243.2 H* Total Protein Albumin Globulin Albumin/Globulin Ratio Lipase TSH Free T4 Nasal Screen MRSA (PCR) SARS-CoV-2 (PCR) Influenza Type A (PCR) Influenza Type B (PCR) RSV (RT-PCR) SARS-CoV-2, RNA, NAAT Diagnostic Findings Echocardiogram 04/23/2022 The left ventricle is normal in size. There is severe asymmetric left ventricular hypertrophy. The interventricular septum and lateral wall measure greater than 2 cm in diast ole The left ventricular outflow tract is narrowed with mild obstruction, chordal systolic anterior motion of the mitral valve. Peak outflow tract velocity was 2.2 m/s at rest increasing to 3 m/s with Valsalva The left ventricular wall motion is normal. Ejection Fraction = 55-60%. Grade I diastolic dysfunction, (abnormal relaxation pattern).
[2022-04-23] MEDS ORDERED: niCARdipine HCL INJ 2.5 MG/ML 10 ML AMP ONE (09:24)
[2022-04-23] MEDS ORDERED: HEPARIN (PORCINE) 1000 UNIT/ML 10 ML (CATH LAB USE ONLY) ONE (09:24)
[2022-04-23] MEDS ORDERED: fentaNYL citrate 100 MCG/2 ML VIAL ONE (09:24)
[2022-04-23] MEDS ORDERED: MIDAZOLAM HCL 1 MG/ML 2ML VIAL ONE (09:24)
[2022-04-23] MEDS ORDERED: NITROGLYCERIN/D5W 100MCG/ML 20ML SYR ONE (09:24)
--- NOTE | 2022-04-23 09:38 | Electrocardiogram Report ---
Test Reason : Blood Pressure : / mmHG Vent. Rate : 170 BPM Atrial Rate : 170 BPM P-R Int : 000 ms QRS Dur : 134 ms QT Int : 310 ms P-R-T Axes : 000 -08 022 degrees QTc Int : [address] depression in Anterior leads , consider ischemia Abnormal ECG When compared with ECG of 18-OCT-2021 10:16, Vent. rate has increased BY 96 BPM Confirmed by Shawn Page ([id number]) on 04/23/2022 9:38:03 AM Referred By: REFERRED SELF Confirmed By:Shawn Page
--- NOTE | 2022-04-23 09:40 | Electrocardiogram Report ---
Test Reason : Blood Pressure : / mmHG Vent. Rate : 092 BPM Atrial Rate : 092 BPM P-R Int : 172 ms QRS Dur : 092 ms QT Int : 382 ms P-R-T Axes : 032 -09 029 degrees QTc Int : 472 ms Normal sinus rhythm Left atrial enlargement Possible Old Lateral infarct Abnormal ECG When compared with ECG of 22-APR-2022 15:59, Supraventricular tachycardia no longer present Vent. rate has decreased BY [address] depression in Anterior leads no longer present Criteria for Old Lateral infarct now present (also seen on older ECGs) Confirmed by Shawn Page ([id number]) on 04/23/2022 9:39:53 AM Referred By: REFERRED SELF Confirmed By:Shawn Page
--- NOTE | 2022-04-23 09:57 | Pre Anesthesia Assessment ---
Date of Service April 23, 2022 Pre Sedation Assessment Vital Signs Temp Pulse Pulse Resp BP BP Pulse Ox 04/23/22 09:41 59 L 17 131/82 97 04/23/22 08:00 36.7 C 60 16 119/71 95 04/23/22 04:00 36.7 C 56 L 18 119/60 94 04/23/22 02:50 36.9 C 60 18 135/70 95 04/23/22 01:47 57 L 14 106/75 94 04/23/22 01:02 69 14 106/75 96 04/22/22 23:11 67 15 126/73 100 04/22/22 22:16 61 14 111/81 96 04/22/22 21:33 64 14 123/76 95 04/22/22 20:17 64 14 121/82 96 04/22/22 19:23 63 14 137/80 98 04/22/22 18:22 83 12 94 04/22/22 18:22 110/81 04/22/22 18:20 79 16 95 04/22/22 18:10 80 12 91 04/22/22 18:00 83 12 92 04/22/22 18:00 106/72 04/22/22 17:50 90 14 92 04/22/22 17:40 89 9 L 95 04/22/22 17:31 100/86 04/22/22 17:31 94 H 19 93 04/22/22 17:30 100 H 24 91 04/22/22 17:20 98 H 17 93 04/22/22 17:10 98 H 11 L 96 04/22/22 17:00 98 H 16 92 04/22/22 17:00 106/70 04/22/22 16:50 99 H 20 93 04/22/22 16:40 98 H 20 94 04/22/22 16:30 99 H 7 L 90 04/22/22 16:30 113/75 04/22/22 16:20 93 H 12 93 04/22/22 16:10 104 H 15 95 04/22/22 16:03 169 H 28 H 97 04/22/22 16:03 120/89 04/22/22 15:53 36.6 C 173 H 24 110/75 95 O2 Del Method 04/23/22 09:41 Room Air 04/23/22 08:00 Room Air 04/23/22 04:00 Room Air, CPAP 04/23/22 02:50 Room Air 04/23/22 01:47 Room Air 04/23/22 01:02 Room Air 04/22/22 23:11 Room Air 04/22/22 22:16 Room Air 04/22/22 21:33 Room Air 04/22/22 20:17 Room Air 04/22/22 19:23 Room Air 04/22/22 18:22 04/22/22 18:22 04/22/22 18:20 04/22/22 18:10 04/22/22 18:00 04/22/22 18:00 04/22/22 17:50 04/22/22 17:40 04/22/22 17:31 04/22/22 17:31 04/22/22 17:30 04/22/22 17:20 04/22/22 17:10 04/22/22 17:00 04/22/22 17:00 04/22/22 16:50 04/22/22 16:40 04/22/22 16:30 04/22/22 16:30 04/22/22 16:20 04/22/22 16:10 04/22/22 16:03 04/22/22 16:03 04/22/22 15:53 Room Air Cardiovascular + regular rate + S1 normal and + S2 normal + femoral pulses present and + radial pulses present; no JVD and no carotid bruit no edema Respiratory + respiratory effort normal; no respiratory distress and no labored breathing no crackles, no rales, no rhonchi and no wheezes Pre-Sedation Airway Assessment Smoking Status: Never smoker Hx Sleep Apnea: Yes Short, Thick Neck: No Thyromental Distance: > or= 3.5 Finger Breadths Oral Cavity: + WNL Mallampati Class: II ASA: ASA2 NPO Status Date of Last Intake of Fluids: 04/22/22 Time of Last Intake of Fluids: 20:00 Date of Last Intake of Solid Food: 04/22/22 Time of Last Intake of Solid Foods: 20:00 Procedure Planning Contraindications for Sedation: none Current Medications Reviewed: Yes Notes The planned sedation has been discussed with the patient. Informed Consent was obtained. I have identified the patient, determined the appropriateness of sedation and have assessed the patient immediately prior to the procedure. All medicine(s) and interventions are by my order.
--- NOTE | 2022-04-23 10:16 | Electrocardiogram Report ---
Test Reason : Blood Pressure : / mmHG Vent. Rate : 058 BPM Atrial Rate : 058 BPM P-R Int : 174 ms QRS Dur : 090 ms QT Int : 454 ms P-R-T Axes : 019 -57 039 degrees QTc Int : 445 ms Sinus bradycardia Left atrial enlargement Left anterior fascicular block Possible Old Lateral infarct Abnormal ECG When compared with ECG of 22-APR-2022 16:11, Vent. rate has decreased BY 34 BPM Confirmed by Shawn Page ([id number]) on 04/23/2022 10:16:15 AM Referred By: REFERRED SELF Confirmed By:Shawn Page
--- NOTE | 2022-04-23 11:08 | Post Anesthesia Assessment ---
Date of Service April 23, 2022 Post Sedation Assessment Vital Signs Temp Pulse Pulse Resp BP BP Pulse Ox 04/23/22 09:41 59 L 17 131/82 97 04/23/22 08:00 36.7 C 60 16 119/71 95 04/23/22 04:00 36.7 C 56 L 18 119/60 94 04/23/22 02:50 36.9 C 60 18 135/70 95 04/23/22 01:47 57 L 14 106/75 94 04/23/22 01:02 69 14 106/75 96 04/22/22 23:11 67 15 126/73 100 04/22/22 22:16 61 14 111/81 96 04/22/22 21:33 64 14 123/76 95 04/22/22 20:17 64 14 121/82 96 04/22/22 19:23 63 14 137/80 98 04/22/22 18:22 83 12 94 04/22/22 18:22 110/81 04/22/22 18:20 79 16 95 04/22/22 18:10 80 12 91 04/22/22 18:00 83 12 92 04/22/22 18:00 106/72 04/22/22 17:50 90 14 92 04/22/22 17:40 89 9 L 95 04/22/22 17:31 100/86 04/22/22 17:31 94 H 19 93 04/22/22 17:30 100 H 24 91 04/22/22 17:20 98 H 17 93 04/22/22 17:10 98 H 11 L 96 04/22/22 17:00 98 H 16 92 04/22/22 17:00 106/70 04/22/22 16:50 99 H 20 93 04/22/22 16:40 98 H 20 94 04/22/22 16:30 99 H 7 L 90 04/22/22 16:30 113/75 04/22/22 16:20 93 H 12 93 04/22/22 16:10 104 H 15 95 04/22/22 16:03 169 H 28 H 97 04/22/22 16:03 120/89 04/22/22 15:53 36.6 C 173 H 24 110/75 95 O2 Del Method 04/23/22 09:41 Room Air 04/23/22 08:00 Room Air 04/23/22 04:00 Room Air, CPAP 04/23/22 02:50 Room Air 04/23/22 01:47 Room Air 04/23/22 01:02 Room Air 04/22/22 23:11 Room Air 04/22/22 22:16 Room Air 04/22/22 21:33 Room Air 04/22/22 20:17 Room Air 04/22/22 19:23 Room Air 04/22/22 18:22 04/22/22 18:22 04/22/22 18:20 04/22/22 18:10 04/22/22 18:00 04/22/22 18:00 04/22/22 17:50 04/22/22 17:40 04/22/22 17:31 04/22/22 17:31 04/22/22 17:30 04/22/22 17:20 04/22/22 17:10 04/22/22 17:00 04/22/22 17:00 04/22/22 16:50 04/22/22 16:40 04/22/22 16:30 04/22/22 16:30 04/22/22 16:20 04/22/22 16:10 04/22/22 16:03 04/22/22 16:03 04/22/22 15:53 Room Air Recovery Score Activity: Moves 4 extremities Respiration: Deep Breath/Cough Circulation: +/-20% PreAnes Value Consciousness: Arouseable (by name) Oxygen Saturation: > 92% On Room Air Discharge Sedation Level of Care: Phase I Post Sedation Plan On clinical assessment, the patient appears to have tolerated the sedation without complications. Patient is recovering as anticipated. Patient will continue to be monitored by nursing and may be discharged when sedation discharge criteria are met per below protocol. Upon Completions of procedure up to 15 minutes continue every 5 minute vital signs and the P.A.R. score; then discharge to a Phase I or Fast Track to Phase II per the following guidelines: * Discharge Patient to appropriate Phase II area if PAR is 8 or greater or return to pre- procedure baseline. The post - procedure orders will be as directed. * If PAR score is less than 8 or not return to pre-procedure baseline then patient will follow Phase I monitoring till PAR is reached for Phase II. The Phase I may be done in procedure room or may call to secure a Phase I area. * If naloxone or flumazenil are used for reversal, hold in Phase I for continued monitoring from when last reversal dose was given for a minimum of 60 minutes or longer pending the nurse and/or physician discretion of patient condition before discharge to Phase II. Please call the Sedation Physician to re-evaluate and complete post-note for discharge to Phase II area. Do NOT discharge from procedure sedation or Phase 1 until post- sedation evaluation note is complete by procedure /sedation MD Sedation Discharge Instructions to be given to the patient at discharge to home.
--- NOTE | 2022-04-23 11:12 | Cardiac Catheterization ---
Cardiac Cath Procedure Full Procedure Date April 23, 2022 Pre-Procedure Diagnosis Pre-Procedure Diagnosis: Acute Coronary Syndrome, Cardiomyopathy (Hypertrophic cardiomyopathy) and Arrhythmia (Paroxysmal supraventricular tachycardia) AUC Score AUC Score: 7 Post-Procedure Diagnosis Post-Procedure Diagnosis: Mild CAD, Elevated Intracardiac Pressures and Cardiothoracic Finding (No significant peak to peak gradient to suggest LVOT obstruction) Procedure(s) Performed Procedure(s) Performed: Coronary Angiography and Left Heart Cath School Resource Officer Andrea Gerard DO Food And Beverage Service Manager(s) Obdulia RTR Estimated Blood Loss Estimated Blood Loss: 5cc Medication(s) Medication(s): Fentanyl, Heparin, Lidocaine 1%, Nicardipine and Versed Summary of Findings Mild luminal irregularities (10%) of the proximal and mid LAD. Otherwise normal coronary anatomy. The left main is a short vessel with the multipurpose Tigr preferentially engaging the circumflex. Intermittent engagement of the left anterior descending artery. Hemodynamics Rest Ao:: 105/67/94 Final Ao: 110/69/88 LV: 108//23 Recommendations Recommendations: Medical Therapy and/or Counseling Specimens Specimens: None Radiation Exposure (mGy) 1430 Contrast (mls) 70 Fluids (cc crystalloids) Fluids (cc crystalloids): 70 Nss Drains Drains: N/A Anesthesia Moderate sedation. Start 1040. End 1058. Sedation monitor: Kayla ANAND Procedural Complication(s) None I attest to the content of the Intraoperative Record and any orders documented therein. Any exceptions are noted below. 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 Significantly elevated troponin with nondiagnostic ECG changes due to underlying hypertrophic cardiomyopathy. CAD Presenation: Non STEMI Heart Failure: No Cardiogenic Shock within 24 Hours: No Cardiac Arrest within 24 Hours: No Imaging Studies Past 6 Months: No Stress Studies Past 6 Months: No STEMI OR Non-STEMI Symptom Onset Date: 04/22/22 Thrombolytics: No Coronary Anatomy Dominant: Co-Dominant Left Main (% Stenosis): Normal (Short vessel) LAD (% Stenosis): Proximal (Mild diffuse luminal irregularities, 10%) and Mid (Mild diffuse luminal irregularities, 10%) D1 (% Stenosis): Normal D2 (% Stenosis): Normal D3 (% Stenosis): Normal Circumflex (% Stenosis): Normal OM1 (% Stenosis): Normal (Large vessel bifurcates in mid segment.) L PL1 (% Stenosis): Normal L PDA (% Stenosis): Normal RCA (% Stenosis): Normal R PDA (% Stenosis): Normal Diagnostic Physicians Name: Andrea Gerard DO Closure Device Percutaneous Entry Location: Radial Closure Device: Radial Band Recommendations: Medical Therapy and/or Counseling Intraprocedure Events Significant Disection: No Perforation: No
[2022-04-23] MEDS: SODIUM CHLORIDE 0.9% 1000ML 1,000 ML IV SCH ×2 (11:45→18:04)
--- NOTE | 2022-04-23 12:32 | Electrocardiogram Report ---
Test Reason : Blood Pressure : / mmHG Vent. Rate : 057 BPM Atrial Rate : 057 BPM P-R Int : 170 ms QRS Dur : 094 ms QT Int : 470 ms P-R-T Axes : 019 -49 034 degrees QTc Int : 457 ms Sinus bradycardia Left anterior fascicular block Possible Old Lateral infarct Abnormal ECG When compared with ECG of 23-APR-2022 00:43, No significant change was found Confirmed by Shawn aPge ([id number]) on 04/23/2022 12:32:00 PM Referred By: REFERRED SELF Confirmed By:Shawn Page
--- NOTE | 2022-04-23 13:40 | Hospitalist Progress Note ---
Date of Service April 23, 2022 Assessment & Plan (1) SVT (supraventricular tachycardia): Plan: [facility] patient with ICD in place has a h/o SVT, last in Oct 2021. No ICD firing, but symptoms brought him to the ER. This was possibly related to 1 bottle of wine he drank last night and missed doses of metoprolol prior to admission. Denies caffeine use or any stimulant use. TSH 4.8, slightly elev. Troponin elevated and pt started on IV heparin overnight. Pacemaker interrogation was ordered. Currently pending Cardiology consulted, metoprolol restarted Echo obtained LV normal in size There is severe asymmetric LV hypertrophy. Interventricular septum and lateral wall measure greater than 2 cm in diastole. LV outflow tract is narrowed with mild obstruction, chordal systolic anterior motion of the mitral valve. Peak outflow tract velocity was 2.2 m/s at rest increasing to 3 m/s with Valsalva. LV wall motion is normal. EF 55 to 60%. Grade 1 diastolic dysfunction. Cardiac angiography obtained - normal Cont. to closely monitor on telemetry (2) HOCM (hypertrophic obstructive cardiomyopathy): Plan: known structural heart disease s/p ICD, as above (3) SHEREEN (obstructive sleep apnea): Plan: compliant with CPAP qHS which was ordered. (4) Depression: Plan: chronic, stable. Continues on sertraline daily. (5) Presence of automatic (implantable) cardiac defibrillator: Plan: Interrogation was ordered. Currently pending. (6) Morbid obesity: Plan: Lifestyle changes recommended DVT proph-Lovenox Full Code Dispo- PCU for close monitoring overnight. Then home after pending cardiology clearance/recommendations. Admission and Anticipated Discharge Date Admission Date: April 22, 2022 Subjective Pt seen in follow up of SVT, hx of [facility] Cardiology was consulted and echo was obtained and pt underwent coronary angiography Currently patient is lying in bed, in no acute distress. Currently denies any chest pain palpitations, shortness of breath. Overall feels okay just tired. Review of Systems Review of Systems: All systems reviewed & are unremarkable except as noted in Subjective Physical Exam Physical Exam: CONSTITUTIONAL: obese M in NAD EYES: PERRL, EOMI ENT: external ear and nose normal, oropharynx clear, oral mucosa moist NECK: trachea midline RESPIRATORY: clear to auscultation bilaterally, no crackles, rales or wheezes, normal respiratory effort CARDIOVASCULAR: regular rate and rhythm, 3/6 JB across precordium, no peripheral edema CHEST: +ICD GASTROINTESTINAL: soft, nontender, ND, +bowel sounds, obese MUSCULOSKELETAL:head is normocephalic and atraumatic, moves extremities SKIN: warm and dry NEURO/PSYCH:Awake alert oriented, answering questions appropriately, speech fluent, moves extremities Results & Data Results & Data ([facility]) Vital Signs (Past 12 Hours) Vital Signs Temp Pulse Pulse Pulse Resp BP BP 04/23/22 13:00 66 16 04/23/22 13:00 110/87 04/23/22 12:45 112/79 04/23/22 12:45 64 12 04/23/22 12:45 04/23/22 12:30 128/78 04/23/22 12:30 63 16 04/23/22 12:15 63 19 04/23/22 12:15 138/76 04/23/22 12:15 04/23/22 12:00 61 15 04/23/22 12:00 127/84 04/23/22 11:46 63 20 04/23/22 11:40 64 17 04/23/22 11:45 134/83 04/23/22 11:32 61 17 04/23/22 11:32 102/75 04/23/22 11:30 60 13 04/23/22 11:41 04/23/22 11:30 36.8 C 04/23/22 11:20 57 L 16 04/23/22 11:05 61 16 04/23/22 09:41 59 L 17 131/82 04/23/22 08:00 36.7 C 60 16 04/23/22 04:00 36.7 C 56 L 18 04/23/22 02:50 36.9 C 60 18 04/23/22 01:47 57 L 14 BP Pulse Ox O2 Del Method 04/23/22 13:00 98 04/23/22 13:00 04/23/22 12:45 04/23/22 12:45 97 04/23/22 12:45 Room Air 04/23/22 12:30 04/23/22 12:30 97 04/23/22 12:15 96 04/23/22 12:15 04/23/22 12:15 Room Air 04/23/22 12:00 96 04/23/22 12:00 04/23/22 11:46 93 04/23/22 11:40 95 04/23/22 11:45 Room Air 04/23/22 11:32 95 04/23/22 11:32 04/23/22 11:30 04/23/22 11:41 Room Air 04/23/22 11:30 Room Air 04/23/22 11:20 121/82 97 Room Air 04/23/22 11:05 122/81 97 Room Air 04/23/22 09:41 97 Room Air 04/23/22 08:00 119/71 95 Room Air 04/23/22 04:00 119/60 94 Room Air, CPAP 04/23/22 02:50 135/70 95 Room Air 04/23/22 01:47 106/75 94 Room Air Laboratory Results 04/23/22 04/23/22 04/23/22 Range/Units 12:47 08:07 04:25 WBC (4.8-10.8) K/ul RBC (4.70-6.10) M/uL Hgb (14.0-18.0) g/dl Hct (42.0-52.0) % MCV (80.0-100.0) fL MCH (25.0-34.0) pg MCHC (32.0-36.0) g/dL RDW Std Deviation (36.4-46.3) fL RDW Coeff of Georgette (11.5-14.5) % Plt Count (130-400) K/uL MPV (9.4-12.4) fL Immature Gran % (Auto) % Neut % (Auto) % Lymph % (Auto) % [place] % (Auto) % Eos % (Auto) % Baso % (Auto) % Neut # (Auto) (1.40-6.50) K/uL Lymph # (Auto) (1.2-3.4) K/uL [place] # (Auto) (0.11-0.59) K/uL Eos # (Auto) (0-0.50) K/uL Baso # (Auto) (0-0.2) K/uL Immature Gran # (Auto) (0.01-0.20) K/uL PT (9.0-12.0) Seconds INR (0.9-1.1) APTT 118.2 H* (21.0-31.0) Seconds PTT Ratio 4.3 Sodium 138 (136-145) mmol/L Potassium 4.0 (3.5-5.1) mmol/L Chloride 106 (98-107) mmol/L Carbon Dioxide 28 (21-32) mmol/L Anion Gap 4 (3-11) BUN 18 (6-23) mg/dl Creatinine 0.93 (0.6-1.4) mg/dl Est Cr Clr Drug Dosing 118.3 Est GFR ( Amer) 106.0 ml/min Est GFR (Non-Af Amer) 91.4 ml/min BUN/Creatinine Ratio 19.4 (10-20) Glucose 98 (70-99(Fasting)) mg/dl Calcium 9.1 (8.5-10.1) mg/dl Phosphorus 3.6 (2.5-4.9) mg/dl Magnesium 2.2 (1.7-2.4) mg/dl Total Bilirubin (0.2-1.0) mg/dl AST (13-39) U/L ALT (7-52) U/L Alkaline Phosphatase (34-104) U/L Troponin I High Sens Pending 4243.2 H* (0-20) pg/ml Total Protein (6.0-8.3) gm/dl Albumin (3.4-5.0) gm/dl Globulin (2.5-4.0) gm/dl Albumin/Globulin Ratio (0.9-2) Lipase (11-82) U/L TSH (0.300-4.500) uIu/ml Free T4 (0.61-1.60) ng/dl Nasal Screen MRSA (PCR) (Negative) SARS-CoV-2 (PCR) (Negative) Influenza Type A (PCR) (Neg) Influenza Type B (PCR) (Neg) RSV (RT-PCR) (Neg) SARS-CoV-2, RNA, NAAT (NEGATIVE) 04/23/22 04/23/22 04/23/22 Range/Units 04:25 02:30 00:50 WBC 8.03 (4.8-10.8) K/ul RBC 4.87 (4.70-6.10) M/uL Hgb 15.1 (14.0-18.0) g/dl Hct 42.1 (42.0-52.0) % MCV 86.4 (80.0-100.0) fL MCH 31.0 (25.0-34.0) pg MCHC 35.9 (32.0-36.0) g/dL RDW Std Deviation 40.3 (36.4-46.3) fL RDW Coeff of Georgette 13.0 (11.5-14.5) % Plt Count 154 (130-400) K/uL MPV 10.8 (9.4-12.4) fL Immature Gran % (Auto) % Neut % (Auto) % Lymph % (Auto) % [place] % (Auto) % Eos % (Auto) % Baso % (Auto) % Neut # (Auto) (1.40-6.50) K/uL Lymph # (Auto) (1.2-3.4) K/uL [place] # (Auto) (0.11-0.59) K/uL Eos # (Auto) (0-0.50) K/uL Baso # (Auto) (0-0.2) K/uL Immature Gran # (Auto) (0.01-0.20) K/uL PT (9.0-12.0) Seconds INR (0.9-1.1) APTT (21.0-31.0) Seconds PTT Ratio Sodium (136-145) mmol/L Potassium (3.5-5.1) mmol/L Chloride (98-107) mmol/L Carbon Dioxide (21-32) mmol/L Anion Gap (3-11) BUN (6-23) mg/dl Creatinine (0.6-1.4) mg/dl Est Cr Clr Drug Dosing Est GFR ( Amer) ml/min Est GFR (Non-Af Amer) ml/min BUN/Creatinine Ratio (10-20) Glucose (70-99(Fasting)) mg/dl Calcium (8.5-10.1) mg/dl Phosphorus (2.5-4.9) mg/dl Magnesium (1.7-2.4) mg/dl Total Bilirubin (0.2-1.0) mg/dl AST (13-39) U/L ALT (7-52) U/L Alkaline Phosphatase (34-104) U/L Troponin I High Sens 5120.5 H* D (0-20) pg/ml Total Protein (6.0-8.3) gm/dl Albumin (3.4-5.0) gm/dl Globulin (2.5-4.0) gm/dl Albumin/Globulin Ratio (0.9-2) Lipase (11-82) U/L TSH (0.300-4.500) uIu/ml Free T4 (0.61-1.60) ng/dl Nasal Screen MRSA (PCR) Negative (Negative) SARS-CoV-2 (PCR) (Negative) Influenza Type A (PCR) (Neg) Influenza Type B (PCR) (Neg) RSV (RT-PCR) (Neg) SARS-CoV-2, RNA, NAAT (NEGATIVE) 04/22/22 04/22/22 04/22/22 Range/Units 20:27 19:26 18:41 WBC (4.8-10.8) K/ul RBC (4.70-6.10) M/uL Hgb (14.0-18.0) g/dl Hct (42.0-52.0) % MCV (80.0-100.0) fL MCH (25.0-34.0) pg MCHC (32.0-36.0) g/dL RDW Std Deviation (36.4-46.3) fL RDW Coeff of Georgette (11.5-14.5) % Plt Count (130-400) K/uL MPV (9.4-12.4) fL Immature Gran % (Auto) % Neut % (Auto) % Lymph % (Auto) % [place] % (Auto) % Eos % (Auto) % Baso % (Auto) % Neut # (Auto) (1.40-6.50) K/uL Lymph # (Auto) (1.2-3.4) K/uL [place] # (Auto) (0.11-0.59) K/uL Eos # (Auto) (0-0.50) K/uL Baso # (Auto) (0-0.2) K/uL Immature Gran # (Auto) (0.01-0.20) K/uL PT (9.0-12.0) Seconds INR (0.9-1.1) APTT (21.0-31.0) Seconds PTT Ratio Sodium (136-145) mmol/L Potassium (3.5-5.1) mmol/L Chloride (98-107) mmol/L Carbon Dioxide (21-32) mmol/L Anion Gap (3-11) BUN (6-23) mg/dl Creatinine (0.6-1.4) mg/dl Est Cr Clr Drug Dosing Est GFR ( Amer) ml/min Est GFR (Non-Af Amer) ml/min BUN/Creatinine Ratio (10-20) Glucose (70-99(Fasting)) mg/dl Calcium (8.5-10.1) mg/dl Phosphorus (2.5-4.9) mg/dl Magnesium 2.2 (1.7-2.4) mg/dl Total Bilirubin (0.2-1.0) mg/dl AST (13-39) U/L ALT (7-52) U/L Alkaline Phosphatase (34-104) U/L Troponin I High Sens 2329.5 H* D (0-20) pg/ml Total Protein (6.0-8.3) gm/dl Albumin (3.4-5.0) gm/dl Globulin (2.5-4.0) gm/dl Albumin/Globulin Ratio (0.9-2) Lipase (11-82) U/L TSH 4.893 H (0.300-4.500) uIu/ml Free T4 0.83 (0.61-1.60) ng/dl Nasal Screen MRSA (PCR) (Negative) SARS-CoV-2 (PCR) NEGATIVE (Negative) Influenza Type A (PCR) Negative (Neg) Influenza Type B (PCR) Negative (Neg) RSV (RT-PCR) Negative (Neg) SARS-CoV-2, RNA, NAAT (NEGATIVE) 04/22/22 04/22/22 04/22/22 Range/Units 17:22 16:04 16:04 WBC (4.8-10.8) K/ul RBC (4.70-6.10) M/uL Hgb (14.0-18.0) g/dl Hct (42.0-52.0) % MCV (80.0-100.0) fL MCH (25.0-34.0) pg MCHC (32.0-36.0) g/dL RDW Std Deviation (36.4-46.3) fL RDW Coeff of Georgette (11.5-14.5) % Plt Count (130-400) K/uL MPV (9.4-12.4) fL Immature Gran % (Auto) % Neut % (Auto) % Lymph % (Auto) % [place] % (Auto) % Eos % (Auto) % Baso % (Auto) % Neut # (Auto) (1.40-6.50) K/uL Lymph # (Auto) (1.2-3.4) K/uL [place] # (Auto) (0.11-0.59) K/uL Eos # (Auto) (0-0.50) K/uL Baso # (Auto) (0-0.2) K/uL Immature Gran # (Auto) (0.01-0.20) K/uL PT 10.9 (9.0-12.0) Seconds INR 1.0 (0.9-1.1) APTT 28.4 (21.0-31.0) Seconds PTT Ratio 1.0 Sodium 139 (136-145) mmol/L Potassium 3.7 (3.5-5.1) mmol/L Chloride 106 (98-107) mmol/L Carbon Dioxide 26 (21-32) mmol/L Anion Gap 7 (3-11) BUN 21 (6-23) mg/dl Creatinine 1.15 (0.6-1.4) mg/dl Est Cr Clr Drug Dosing Not Reportable Est GFR ( Amer) 82.0 ml/min Est GFR (Non-Af Amer) 70.7 ml/min BUN/Creatinine Ratio 18.3 (10-20) Glucose 116 H (70-99(Fasting)) mg/dl Calcium 10.1 (8.5-10.1) mg/dl Phosphorus (2.5-4.9) mg/dl Magnesium (1.7-2.4) mg/dl Total Bilirubin 0.7 (0.2-1.0) mg/dl AST 24 (13-39) U/L ALT 19 (7-52) U/L Alkaline Phosphatase 91 (34-104) U/L Troponin I High Sens 25.8 H (0-20) pg/ml Total Protein 7.6 (6.0-8.3) gm/dl Albumin 4.7 (3.4-5.0) gm/dl Globulin 2.9 (2.5-4.0) gm/dl Albumin/Globulin Ratio 1.6 (0.9-2) Lipase 20 (11-82) U/L TSH (0.300-4.500) uIu/ml Free T4 (0.61-1.60) ng/dl Nasal Screen MRSA (PCR) (Negative) SARS-CoV-2 (PCR) (Negative) Influenza Type A (PCR) (Neg) Influenza Type B (PCR) (Neg) RSV (RT-PCR) (Neg) SARS-CoV-2, RNA, NAAT NEGATIVE (NEGATIVE) 04/22/22 Range/Units 16:04 WBC 7.92 (4.8-10.8) K/ul RBC 5.40 (4.70-6.10) M/uL Hgb 16.7 (14.0-18.0) g/dl Hct 45.9 (42.0-52.0) % MCV 85.0 (80.0-100.0) fL MCH 30.9 (25.0-34.0) pg MCHC 36.4 H (32.0-36.0) g/dL RDW Std Deviation 38.4 (36.4-46.3) fL RDW Coeff of Georgette 12.6 (11.5-14.5) % Plt Count 204 (130-400) K/uL MPV 10.2 (9.4-12.4) fL Immature Gran % (Auto) 0.4 % Neut % (Auto) 59.8 % Lymph % (Auto) 26.3 % [place] % (Auto) 9.2 % Eos % (Auto) 3.5 % Baso % (Auto) 0.8 % Neut # (Auto) 4.74 (1.40-6.50) K/uL Lymph # (Auto) 2.08 (1.2-3.4) K/uL [place] # (Auto) 0.73 H (0.11-0.59) K/uL Eos # (Auto) 0.28 (0-0.50) K/uL Baso # (Auto) 0.06 (0-0.2) K/uL Immature Gran # (Auto) 0.03 (0.01-0.20) K/uL PT (9.0-12.0) Seconds INR (0.9-1.1) APTT (21.0-31.0) Seconds PTT Ratio Sodium (136-145) mmol/L Potassium (3.5-5.1) mmol/L Chloride (98-107) mmol/L Carbon Dioxide (21-32) mmol/L Anion Gap (3-11) BUN (6-23) mg/dl Creatinine (0.6-1.4) mg/dl Est Cr Clr Drug Dosing Est GFR ( Amer) ml/min Est GFR (Non-Af Amer) ml/min BUN/Creatinine Ratio (10-20) Glucose (70-99(Fasting)) mg/dl Calcium (8.5-10.1) mg/dl Phosphorus (2.5-4.9) mg/dl Magnesium (1.7-2.4) mg/dl Total Bilirubin (0.2-1.0) mg/dl AST (13-39) U/L ALT (7-52) U/L Alkaline Phosphatase (34-104) U/L Troponin I High Sens (0-20) pg/ml Total Protein (6.0-8.3) gm/dl Albumin (3.4-5.0) gm/dl Globulin (2.5-4.0) gm/dl Albumin/Globulin Ratio (0.9-2) Lipase (11-82) U/L TSH (0.300-4.500) uIu/ml Free T4 (0.61-1.60) ng/dl Nasal Screen MRSA (PCR) (Negative) SARS-CoV-2 (PCR) (Negative) Influenza Type A (PCR) (Neg) Influenza Type B (PCR) (Neg) RSV (RT-PCR) (Neg) SARS-CoV-2, RNA, NAAT (NEGATIVE) Medications Administered Current Inpatient Medications Acetaminophen (Acetaminophen 325 Mg Tab) 650 mg PO Q4H PRN PRN Reason: Pain or Fever Stop: 05/22/22 21:40 Sodium Chloride (Nss 1000ml) 1,000 mls @ 125 mls/hr IV .Q8H MAC Stop: 05/23/22 09:44 Last Admin: 04/23/22 11:45 Dose: 125 mls/hr Metoprolol Succinate (Metoprolol Succ 25mg Ext Rel Tab) 25 mg PO BID [facility] Stop: 05/23/22 08:59 Last Admin: 04/23/22 08:09 Dose: 25 mg Polyethylene Glycol (Polyethylene (Miralax) 17 Gm Pack) 17 gm PO DAILY PRN PRN Reason: Constipation Stop: 05/22/22 21:40 Sertraline HCl (Sertraline Hcl 100 Mg Tablet) 100 mg PO DAILY [facility] Stop: 05/23/22 08:59 Last Admin: 04/23/22 08:09 Dose: 100 mg
--- NOTE | 2022-04-23 18:06 | Discharge Summary ---
Date of Service April 23, 2022 Admission HPI Per Admitting Provider 56 yo man with a history of hypertrophic obstructive cardiomyopathy, supraventricular tachycardia and nonsustained ventricular tachycardia status post ICD in the setting of obstructive sleep apnea and morbid obesity presents for left arm pain and palpitations. He reports watching television with his [id number] after yarsani today and started feeling poorly. He specifically felt his heart racing, left arm pain and shortness of breath. He tried to bear down but without success. He took an aspirin and came to the ER. He spontaneously converted to sinus rhythm and was given 25 metoprolol p.o. When he converted to sinus rhythm his arm pain and symptoms resolved. Over the past few days he has been feeling well he reports no caffeine intake. He did drink almost a bottle of wine last night which is unusual for him. He also missed both his morning and evening dose of metoprolol yesterday. He did take his metoprolol dose this morning. He denies any fevers chills, urinary symptoms, GI symptoms or other issues today. He is currently in sinus rhythm and reporting no symptoms and feeling well. He is asking to eat food. Admission Exam Per Admitting Provider CONSTITUTIONAL: obese, vitals as above, generally well-appearing, NAD EYES: pupils are round and equal bilaterally, normal conjunctivae, no scleral icterus ENT: external ear and nose normal, oropharynx clear, oral mucosa moist NECK: trachea midline, no lymphadenopathy RESPIRATORY: clear to auscultation bilaterally, no crackles, rales or wheezes, normal respiratory effort CARDIOVASCULAR: regular rate and rhythm, 3/6 JB across precordium, no gallops or rubs, no JVD, no peripheral edema CHEST: +ICD GASTROINTESTINAL: soft, protuberant, nontender, ND, no guarding MUSCULOSKELETAL: strength 5/5 throughout, head is normocephalic and atraumatic, no gross focal deficits. SKIN: warm and dry NEUROLOGIC: CN 2-12 grossly intact, no sensory deficit, normal cognition, normal speech, no tremor. No gross focal deficits. PSYCHIATRIC: alert cooperative and oriented to person, place and time. Euthymic mood, makes good eye contact, language grossly intact, recent and remote memory grossly intact. Principal Diagnosis Supraventricular tachycardia History of HOCM Discharge Exam CONSTITUTIONAL: obese M in NAD EYES: PERRL, EOMI ENT: external ear and nose normal, oropharynx clear, oral mucosa moist NECK: trachea midline RESPIRATORY: clear to auscultation bilaterally, no crackles, rales or wheezes, normal respiratory effort CARDIOVASCULAR: regular rate and rhythm, 3/6 JB across precordium, no peripheral edema CHEST: +ICD GASTROINTESTINAL: soft, nontender, ND, +bowel sounds, obese MUSCULOSKELETAL:head is normocephalic and atraumatic, moves extremities SKIN: warm and dry NEURO/PSYCH:Awake alert oriented, answering questions appropriately, speech fluent, moves extremities Discharge Data Allergies Allergy/AdvReac Type Severity Reaction Status Date / Time erythromycin base Allergy Mild HIVES Unverified 05/08/18 10:19 Penicillins Allergy Mild HIVES Unverified 05/08/18 10:19 Consultations 04/22/22 18:05 ED Decision to Admit Stat 04/22/22 21:41 Consult Cardiology Routine Procedures Performed Operation Date: 04/23/22 09:30 Actual Procedures s Cineradiography w/Routine Exam - Andrea Gerard DO p Cath, Left with Cors and Vent - Andrea Gerard DO Ordered Studies 04/23/22 09:33 CL Cath Imgs for PACS use only Routine Hospital Course (1) SVT (supraventricular tachycardia): HOCM patient with ICD in place has a h/o SVT, last in Oct 2021. No ICD firing, but symptoms brought him to the ER. This was possibly related to 1 bottle of wine he drank last night and missed doses of metoprolol prior to admission. Denies caffeine use or any stimulant use. TSH 4.8, slightly elev. Troponin elevated and pt started on IV heparin overnight. Pacemaker interrogation was ordered. Currently pending Cardiology consulted, metoprolol restarted Echo obtained LV normal in size There is severe asymmetric LV hypertrophy. Interventricular septum and lateral wall measure greater than 2 cm in diastole. LV outflow tract is narrowed with mild obstruction, chordal systolic anterior motion of the mitral valve. Peak outflow tract velocity was 2.2 m/s at rest increasing to 3 m/s with Valsalva. LV wall motion is normal. EF 55 to 60%. Grade 1 diastolic dysfunction. Cardiac angiography obtained - normal ICD interrogation pending, plan to obtain as outpatient. Patient is clinically feeling well, and interested in discharge, per cardiology, will follow-up with them as outpatient (2) HOCM (hypertrophic obstructive cardiomyopathy): known structural heart disease s/p ICD, as above (3) SHEREEN (obstructive sleep apnea): compliant with CPAP qHS which was ordered. (4) Depression: chronic, stable. Continues on sertraline daily. (5) Presence of automatic (implantable) cardiac defibrillator: Interrogation was ordered. Currently pending. (6) Morbid obesity: Lifestyle changes recommended Total Time Total Time Spent Total Time Spent (In Minutes): 40 Discharge Plan Discharge Items Patient Disposition: Home - Self-Care Reason For Visit: TACHYCARDIA,SVT Discharge Diagnosis: Supraventricular tachycardia History of HOCM Activity: Per Instructions section Non-emergency contact: Primary Care Provider and Windows Deployment Technician Call non-emergency contact if: you have any medication questions and your symptoms worsen Follow-up/Referrals: Tashi Powell DO [Outside Practitioners] - (Date & Time 04/30/2022 1:20 PM Provider Tashi Powell DO Department [facility] ) Diet: Heart Healthy Addtl Attending Provider Instructions: Follow-up with your primary care doctor and electrical intern. The appointment with primary care doctor was scheduled for you for April 30. You will be contacted by the cardiology office about the appointment for you. Continue taking metoprolol 25 mg twice daily as prescribed. Pending Studies at Discharge: No Stand-Alone Forms: [facility] [employer], Smoking Cessation Medications and DC Order Prescriptions: Continued glucosamine sulfate [Glucosamine] 500 mg Tablet 500 mg PO QAM metoprolol succinate 25 mg tablet extended release 24 hr 25 mg PO BID sertraline 100 mg tablet 100 mg PO DAILY Vitamin C 1,000 mg Capsule, Extended Release 1,000 cap PO DAILY Discharge Orders: Discharge Order (Routine); Ordered 04/23/22 Ordered By: Kam Simmons Admission Data Admit Date/Time: 04/22/22 18:42 Attending Provider: Kam Simmons Admit Provider: Amber Hinkle Primary Care Provider: PCP,NO Other Providers: Israel Aquino ; Amber Hinkle ; Andrea Gerard
== END 2022-04-23 18:40 | disposition home or self-care (01) | DRG 287 ==
LOC: ED 15:52 → SUATTDRO 18:42 → EDINP 18:42 → 1E 04-23 01:49